=== PATIENT | male | born 1935 | race Caucasian/White ===

== ENCOUNTER 2022-01-07 00:47 | Inpatient (IN) | payer MEDICAID, MEDICARE, OTHER ==
[~2022-01-07] VITALS: Ht 165.1 cm; Wt 59.0 kg
[~2022-01-07 00:47] MED LIST: ASPI-986 PO; METO-396 PO; SIMV-43 PO
[2022-01-07] MEDS ORDERED: SODIUM CHLORIDE 0.9% 250 ML IV ONE (01:00)
[2022-01-07 01:25] LABS: HEMATOCRIT. 34.6 % (42.0-52.0); HEMOGLOBIN. 11.3 g/dL (14.0-18.0); MEAN CORPUSCULAR HEMOGLOBIN 36.1 pg (28.0-32.0); MEAN CORPUSCULAR VOLUME 110.9 fL (80.0-94.0); MEAN PLATELET VOLUME 11.6 fl (7.4-10.4); PLATELET 91 x1000/uL (130-400); RED BLOOD CELL COUNT 3.12 mill/uL (4.7-6.1); RED CELL DISTRIBUTION WIDTH 16.7 % (11.6-14.6)
[2022-01-07 01:32] LABS: CHLORIDE 99 mEq/L (98-107)
[2022-01-07 02:43] LABS: PLATELET ESTIMATE DECREASED
[2022-01-07] MEDS ORDERED: SODIUM CHLORIDE 0.9% 500 ML IV ONE (02:45)
[2022-01-07] MEDS ORDERED: ASPIRIN 325MG EC TABLET PO ONE (05:30)
[2022-01-07 08:36] VITALS: BP 123/63
[2022-01-07] MEDS ORDERED: HYDROCODONE/ACETAMINOPHEN 5/325MG TABLET PO PRN (11:45)
[2022-01-07] MEDS ORDERED: ENOXAPARIN 40MG/0.4ML SYR SUBCUT SCH (11:45)
[2022-01-07] MEDS ORDERED: ACETAMINOPHEN 325MG TABLET PO PRN (11:45)
[2022-01-07] MEDS ORDERED: PIPERACILLIN/TAZOBACTAM 3.375 G in DEXTROSE 5% WATER 50 ML IV SCH (11:45)
[2022-01-07] MEDS ORDERED: IPRATROPIUM/ALBUTEROL 0.5-3(2.5)MG/3ML NEB HHN PRN (11:45)
[2022-01-07] MEDS ORDERED: ONDANSETRON HCL 4MG/2ML INJ IV PRN (11:45)
[2022-01-07 12:00] VITALS: BP 120/66
[2022-01-07] MEDS ORDERED: ENOXAPARIN 30MG/0.3ML SYR SUBCUT SCH (12:00)
[2022-01-07] MEDS ORDERED: NALOXONE HCL 0.4MG/ML VIAL IV PRN ×2 (12:00→15:00)
[2022-01-07] MEDS: PIPERACILLIN/TAZOBACTAM 3.375 G in DEXTROSE 5% WATER 50 ML IV SCH ×2 (13:26→21:03)
[2022-01-07] MEDS ORDERED: ASPIRIN 81MG TABLET PO SCH (13:30)
[2022-01-07] MEDS ORDERED: VANCOMYCIN 1GM PMX (XELLIA) 200 ML IV SCH (14:00)
[2022-01-07 15:33] VITALS: BP 110/67
[2022-01-07 16:56] LABS: HDL CHOLESTEROL 34 mg/dL (40-59); LDL CHOLESTEROL 38 mg/dL (5-100)
[2022-01-07 17:01] LABS: HEPATITIS B SURFACE ANTIGEN NEGATIVE
[2022-01-07 20:00] VITALS: BP 113/55
[2022-01-07] MEDS ORDERED: ATORVASTATIN CALCIUM 20MG TABLET PO SCH (21:00)
[2022-01-07] MEDS ORDERED: METOPROLOL TARTRATE 25MG TABLET PO SCH (21:00)
[2022-01-07] MEDS ORDERED: DEXTROSE 50% WATER 50ML SYRINGE IV ONE (22:33)
[2022-01-07] MEDS ORDERED: INSULIN REGULAR (HUMULIN R) 300UNITS/3ML VIAL IV NR (22:37)
[2022-01-07] MEDS ORDERED: AMIODARONE HCL 900 MG in DEXT 5% WATER 482 ML IV PRN (22:45)
== END 2022-01-08 01:30 ==
LOC: ER 00:47 → MICUSO 05:18 → EDBEDREQ 05:22 → EDBEDREQTM 05:22 → 6WST 09:02
PROVIDERS: ADMIT Internal Medicine; ATTEND Internal Medicine
PROC: 5A1D70Z Performance of Urinary Filtration, Intermittent, Less than 6 Hours Per Day (ICD-10-PCS; principal; 2022-01-08)
PROC: 5A12012 Performance of Cardiac Output, Single, Manual (ICD-10-PCS; 2022-01-08)
PROC: 0BH17EZ Insertion of Endotracheal Airway into Trachea, Via Natural or Artificial Opening (ICD-10-PCS; 2022-01-08)
DX: I21.4 Non-ST elevation (NSTEMI) myocardial infarction (principal); G92.8 Other toxic encephalopathy; N18.6 End stage renal disease; I13.2 Hypertensive heart and chronic kidney disease with heart failure and with stage 5 chronic kidney disease, or end stage renal disease; I46.9 Cardiac arrest, cause unspecified; D69.6 Thrombocytopenia, unspecified; D64.9 Anemia, unspecified; E78.5 Hyperlipidemia, unspecified; I25.10 Atherosclerotic heart disease of native coronary artery without angina pectoris; R77.8 Other specified abnormalities of plasma proteins; I48.0 Paroxysmal atrial fibrillation; I50.9 Heart failure, unspecified; Z86.73 Personal history of transient ischemic attack (TIA), and cerebral infarction without residual deficits; Z95.1 Presence of aortocoronary bypass graft; Z99.2 Dependence on renal dialysis; S00.83XA Contusion of other part of head, initial encounter
CPT/HCPCS: 36415; 70486; 71045; 80053; 80061; 82962; 83880; 84484; 85025; 86705; 86709; 86803; 87340; 93005; 93306; 99291; A4565; J0282; J1650; J1815; J2543; J3370; J7040; J7050; J7060